=== PATIENT | female | born 1970 | race Caucasian/White ===

== ENCOUNTER → 2020-08-19 | Outpatient (CLI) | payer BC | LOC: RAD 08-17 09:15 | DX: M75.02 Adhesive capsulitis of left shoulder (principal); S43.402A Unspecified sprain of left shoulder joint, initial encounter ==

== ENCOUNTER → 2021-07-21 | Day surgery (SDC) | payer BC | LOC: MSO 07:31 | DX: Z12.11 Encounter for screening for malignant neoplasm of colon (principal); F32.9 Major depressive disorder, single episode, unspecified; F41.9 Anxiety disorder, unspecified | CPT/HCPCS: 00812; J2704; J7120 ==